=== PATIENT | male | born 1995 | race Two or more races ===

== ENCOUNTER 2018-07-01 00:47 | Emergency (ER) | payer BC ==
[~2018-07-01] VITALS: Ht 172.7 cm; Wt 81.7 kg
== END 2018-07-01 01:45 | disposition home or self-care (01) ==
LOC: ED 00:47
DX: B34.9 Viral infection, unspecified (principal)
CPT/HCPCS: 87502; 99283

== ENCOUNTER 2018-07-20 19:04 | Emergency (ER) | payer BC ==
[~2018-07-20] VITALS: Ht 172.7 cm; Wt 82.1 kg
--- OUTSIDE RECORDS SUMMARY | 2018-07-20 19:06 | XMS ---
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 [place] has no Care Guidelines for this patient. Taisha VISIT COUNT (12 MO.) [address] [facility] TOTAL 2 NOTE: Visits indicate total known visits. ED/C VISIT TRACKING (12 MO.) 07/20/2018 19:05 [facility] [place] TYPE: Emergency COMPLAINT: - ABD PAIN 07/01/2018 00:48 [facility] [place] TYPE: Emergency COMPLAINT: - FLU SYMPTOMS DIAGNOSES: - Viral infection, unspecified - Other malaise INPATIENT VISIT TRACKING (12 MO.) No inpatient visits to display in this time frame [email or web address]
== END 2018-07-20 20:49 | disposition home or self-care (01) ==
LOC: ED 19:04
DX: R10.13 Epigastric pain (principal)
CPT/HCPCS: 80053; 81001; 83690; 85025; 99284